=== PATIENT | male | born 1985 | race Caucasian/White ===

== ENCOUNTER 2021-04-27 04:10 | Inpatient (IN) ==
[2021-04-27] MEDS ORDERED: Ondansetron 4 MG/2 ML VIAL IVP PRN (12:00)
[2021-04-27] MEDS ORDERED: 0.9 % Sodium Chloride 1,000 ML IVC SCH (12:00)
[2021-04-27] MEDS ORDERED: Naloxone 0.4 MG/ML INJ IVP PRN (12:00)
[2021-04-27 12:48] LABS: Basophils % 0.4 %; Eosinophils # 0.1 K/mcL (0.0-0.6); Eosinophils % 1.1 %; Hematocrit 36.2 % (37.5-50.1); Hemoglobin 12.5 g/dL (12.9-16.9); Immature Granulocytes % 0.6 % (0-4); Lymphocytes # 1.1 K/mcL (0.6-4.6); Lymphocytes % 15.3 %; Mean Corpuscular HGB Conc 34.5 g/dL (31.6-35.5); Mean Corpuscular Hemoglobin 28.3 pg (28.0-33.3); Mean Corpuscular Volume 81.9 fL (83.0-100.0); Monocytes # 1.1 K/mcL (0.0-1.3); Monocytes % 15.6 %; Neutrophils # 4.9 K/mcL (1.6-8.9); Platelet Count 208 K/mcL (140-400); Red Blood Count 4.42 M/mcL (4.19-5.50); Red Cell Distribution Width 12.7 % (11.5-14.5); White Blood Count 7.3 K/mcL (4.3-11.1)
[2021-04-27 13:13] LABS: Potassium 3.4 mEq/L (3.5-5.1)
[2021-04-27] MEDS: 0.9 % Sodium Chloride 1,000 ML IVC SCH ×2 (13:40→21:54)
[2021-04-27 14:32] LABS: Sodium, Urine 53.6 mEq/L
[2021-04-27 14:33] LABS: Protein/Creatinine Ratio,Urine 0.59 mg/mg (0.00-0.20)
[2021-04-27 14:36] LABS: Complement C3 137 mg/dL (87-200)
[2021-04-27] MEDS ORDERED: 0.9 % Sodium Chloride 1,000 ML IVC ONE (16:45)
[2021-04-27 21:46] LABS: Vitamin D 25 Hydroxy 18 ng/mL (30-80)
[2021-04-27 22:21] LABS: Hepatitis B Surface Antigen Nonreactive (Nonreactive)
[2021-04-27 22:51] LABS: Hepatitis C Virus Antibody Nonreactive (Nonreactive)
[2021-04-27 22:52] LABS: Hepatitis B Core IgM Nonreactive (Nonreactive)
[2021-04-27 22:54] LABS: Hepatitis A Antibody IgM Nonreactive (Nonreactive)
[2021-04-28] MEDS ORDERED: 0.9 % Sodium Chloride 1,000 ML IV ONE (00:28)
[2021-04-28 01:35] LABS: Basophils % 0.5 %; Eosinophils # 0.1 K/mcL (0.0-0.6); Eosinophils % 1.4 %; Hematocrit 34.4 % (37.5-50.1); Hemoglobin 12.1 g/dL (12.9-16.9); Immature Granulocytes % 0.2 % (0-4); Lymphocytes # 0.8 K/mcL (0.6-4.6); Lymphocytes % 18.7 %; Mean Corpuscular HGB Conc 35.2 g/dL (31.6-35.5); Mean Corpuscular Hemoglobin 29.2 pg (28.0-33.3); Mean Corpuscular Volume 82.9 fL (83.0-100.0); Mean Platelet Volume 12.4 fL (9.4-12.4); Monocytes # 0.8 K/mcL (0.0-1.3); Monocytes % 17.1 %; Neutrophils # 2.8 K/mcL (1.6-8.9); Platelet Count 201 K/mcL (140-400); Red Blood Count 4.15 M/mcL (4.19-5.50); Red Cell Distribution Width 12.6 % (11.5-14.5); Segmented Neutrophils % 62.1 %; White Blood Count 4.4 K/mcL (4.3-11.1)
[2021-04-28 01:56] LABS: Calcium 7.7 mg/dL (8.6-10.3); Phosphorous 7.1 mg/dL (2.7-4.5); Potassium 3.1 mEq/L (3.5-5.1)
[2021-04-28] MEDS ORDERED: 0.9 % Sodium Chloride 1,000 ML IVC ONE (08:05)
[2021-04-28] MEDS: 0.9 % Sodium Chloride 1,000 ML IVC SCH ×2 (08:55→08:56)
[2021-04-28 10:02] LABS: Albumin 3.1 g/dL (3.5-5.7); Albumin/Globulin Ratio 1.5 (1.1-2.2); Bilirubin,Direct 0.1 mg/dL (0.0-0.2); Bilirubin,Indirect 0.2 mg/dL (0.0-1.0); Bilirubin,Total 0.3 mg/dL (0.3-1.0); Globulin 2.1 g/dL (2.4-3.5); Total Protein 5.2 g/dL (6.4-8.9); Uric Acid 11.4 mg/dL (2.3-7.6)
[2021-04-28] MEDS ORDERED: Ergocalciferol (VIT D2) 50,000 UNIT (1.25MG) CAP PO SCH (10:15)
[2021-04-28 10:20] LABS: Adenovirus Not Detected (Not Detect); Bordetella Pertussis Not Detected (Not Detect); Chlamydophila pneumoniae Not Detected (Not Detect); Coronavirus 229E Not Detected (Not Detect); Coronavirus HKU1 Not Detected (Not Detect); Coronavirus NL63 Not Detected (Not Detect); Coronavirus OC43 Not Detected (Not Detect); Human Metapneumovirus Not Detected (Not Detect); Human Rhinovirus/Enterovirus Not Detected (Not Detect); Influenza A Subtype 2009 H1 Not Detected (Not Detect); Influenza B Not Detected (Not Detect); Mycoplasma pneumoniae Not Detected (Not Detect); Parainfluenza Virus 1 Not Detected (Not Detect); Parainfluenza Virus 2 Not Detected (Not Detect); Parainfluenza Virus 3 Not Detected (Not Detect); Parainfluenza Virus 4 Not Detected (Not Detect); Respiratory Syncytial Virus Not Detected (Not Detect); SARS-CoV-2 Not Detected (Not Detect)
[2021-04-28] MEDS: calcitrioL 0.25 MCG CAPSULE PO SCH (11:03)
[2021-04-28] MEDS: Ondansetron 4 MG/2 ML VIAL IVP SCH (16:40)
[2021-04-29] MEDS: calcitrioL 0.25 MCG CAPSULE PO SCH (07:56)
[2021-04-29] MEDS: Ondansetron 4 MG/2 ML VIAL IVP SCH ×3 (07:56→16:42)
[2021-04-29 09:12] LABS: Calcium 8.5 mg/dL (8.6-10.3)
[2021-04-29] MEDS ORDERED: E-Z-PAQUE (BARIUM SULF) SUSP 1 BOTTLE PO ONE (09:27)
[2021-04-29] MEDS ORDERED: Simethicone/Sodium Bic/Citr Ac 1 EACH GRAN.EF.PK PO ONE (09:27)
[2021-04-29] MEDS ORDERED: E-Z-HD (BARIUM SULF) SUSPENSION PO ONE (09:27)
[2021-04-30 01:57] LABS: BUN/Creatinine Ratio 17 (6-26); Blood Urea Nitrogen 22 mg/dL (6-20); Calcium 8.4 mg/dL (8.6-10.3); Carbon Dioxide 26 mEq/L (23-29); Chloride 108 mEq/L (98-107); Glucose 103 mg/dL (70-105); Osmolality,Calculated 286 (280-300); Potassium 4.6 mEq/L (3.5-5.1); Sodium 136 mEq/L (136-145); eGFR For African Americans > 60 (> 60); eGFR For Non-African Americans > 60 (> 60)
[2021-04-30 07:24] VITALS: BP 179/52; PULSE 85; TEMP 98.2; O2SAT 95
[2021-04-30] MEDS: Ondansetron 4 MG/2 ML VIAL IVP SCH ×2 (07:56→09:26)
[2021-04-30] MEDS: calcitrioL 0.25 MCG CAPSULE PO SCH (08:08)
[2021-05-01 11:00] LABS: ANA IgG by ELISA NONE DETECTED (None Detected)
[2021-05-02 01:03] LABS: ANCA IFA Titer <1:20 (<1:20)
[2021-05-02 08:15] LABS: ANCA IFA Pattern NONE DETECTED (None Detected); Serine Protease-3 Antibody 2 AU/mL (0-19)
== END 2021-04-30 10:01 | disposition home or self-care (01) | DRG 682 ==
LOC: 2ANU → SUATTDRO 12:00
PROVIDERS: ADMIT Internal Medicine; ATTEND Internal Medicine